=== PATIENT | male | born 1955 | race African-American/Black ===

== ENCOUNTER 2020-09-15 21:57 | Emergency (ER) | payer MEDICAID ==
[~2020-09-15] VITALS: Ht 172.7 cm; Wt 79.0 kg
[2020-09-15] MEDS ORDERED: ASPIRIN 81MG TABLET PO ONE (22:30)
[2020-09-15] MEDS: NITROGLYCERIN 0.4MG TABLET SL SL PRN ×3 (22:52→23:05)
[2020-09-15 22:56] LABS: HEMATOCRIT. 29.6 % (42.0-52.0); HEMOGLOBIN. 9.9 g/dL (14.0-18.0); LYMPHOCYTES % 24.6 % (20.0-50.0); MEAN CORPUSCULAR HEMOGLOBIN 27.4 pg (28.0-32.0); MONOCYTES % 7.5 % (2.0-8.0); NEUTROPHILS % 65.9 % (40.0-76.0); PLATELET 363 x1000/uL (130-400); RED BLOOD CELL COUNT 3.61 mill/uL (4.7-6.1); RED CELL DISTRIBUTION WIDTH 15.3 % (11.6-14.6)
[2020-09-15 23:02] LABS: CHLORIDE 109 mEq/L (98-107)
[2020-09-16 03:41] VITALS: BP 168/55
== END 2020-09-16 05:30 | disposition home or self-care (01) ==
LOC: ER 21:57
DX: R07.89 Other chest pain (principal); Z86.73 Personal history of transient ischemic attack (TIA), and cerebral infarction without residual deficits; I25.2 Old myocardial infarction; F12.90 Cannabis use, unspecified, uncomplicated
CPT/HCPCS: 36415; 71045; 80053; 83880; 84484; 85025; 93005; 99285; Z7610